=== PATIENT | male | born 1975 | race Caucasian/White ===

== ENCOUNTER 2017-02-17 15:25 | Observation (INO) | payer OTHER ==
[~2017-02-17] VITALS: Ht 177.8 cm; Wt 90.0 kg
--- NOTE | ~2017-02-17 | OR ---
Unit #: [id number] #: [id number] Patient: MORTEZA GILL [id number] [facility]. [place], [place] [address] [id number] MR#: [id number] NAME: MORTEZA GILL ROOM: 479 Date of Procedure: 02/17/2017 Admission Date: 02/17/2017 Surgeon: Paul Mcdowell M.D. : 1975 Attending Physician: Paul Mcdowell M.D. Referring Physician: Paul Mcdowell M.D. OPERATIVE REPORT PREOPERATIVE DIAGNOSIS Left ureteral calculus. POSTOPERATIVE DIAGNOSIS Left ureteral calculus. PROCEDURE PERFORMED Cystoscopy with left rigid ureteroscopy, holmium laser lithotripsy, basket extraction of fragments, placement of double-J ureteral stent with external tether. ANESTHESIA General. 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 DESCRIPTION OF PROCEDURE The patient was given preoperative antibiotics and satisfactory general anesthesia. In the dorsal lithotomy position, routine prep and drape were performed. The 21-[place] Islander rigid cystoscope was introduced with a 30-degree lens and video noting a normal anterior and prostatic urethra, although mild elevation of bladder neck. The bladder was drained of clear yellow urine and the orifices noted to be normal and the mucosa healthy pink throughout with no stones, tumors, or suspicious areas seen. The left ureteral stone was seen fluoroscopically just above the pelvic brim. A Sensor guidewire passed up to it, but not beyond it. A Pollack catheter was placed and through it the Sensor guidewire passed easily beyond the stone which was then gently manipulated out of position with the Pollack catheter as well. Leuprolide 8, 10, and 12 were used to dilate the ureter without difficulty. The guidewire was quite straight and a rigid ureteroscope passed easily alongside of it up to above the pelvic brim, where the stone was seen higher than desired. It was carefully brought down with a Nitinol basket and repositioned or it could be lasered without fear of back migration again. With the bed in mild reverse Trendelenburg, the 365 nanometer laser fiber was used at settings of 12 and 0.4 to chip off small pieces methodically until there was only one significant fragment remaining. This was grasped with the basket which occluded the ureter enough to allow irrigation of all the other fragments out ahead of it. This large fragment was collected and sent for Unit #: [id number] #: [id number] Patient: MORTEZA GILL chemical analysis. Final inspection in the ureter one more time showed it to free of trauma or residual stones. There was bleeding around the left ureteral orifice that was associated with dilation. Stent placement appeared indicated in the distal ureter. A 28 x 5 double-J stent was well positioned cystoscopically and fluoroscopically. The bladder was drained. The cystoscope removed. The stent string secured to the dorsum of the penis and a Uro-jet applied. The patient will be given a one week followup and is to have Keflex, tamsulosin, and Percocet until then. Dictated by... Erica Cartwright/joão TD: 02/18/2017 02:40 JOB #: [id number] OPERATIVE REPORT Page 1 of 1 X Paul Mcdowell MD X PROCEDURE OPERATIVE NOTE
--- NOTE | ~2017-02-17 | HP ---
Unit #: [id number] #: [id number] Patient: MORTEZA GILL [id number] [facility] [address] [facility]. [place], [place] [address] [id number] MR#: [id number] NAME: MORTEZA GILL ROOM: 479 Age: 41 Sex: M Admission Date: 02/17/2017 : 1975 Attending Physician: Paul Mcdowell M.D. Referring Physician: Paul Mcdowell M.D. HISTORY AND PHYSICAL CHIEF COMPLAINT Flank pain. HISTORY OF PRESENT ILLNESS This 41-year-old man presented to the [facility] Emergency Department this morning and was complaining of left flank pain with nausea, although no vomiting. This had occurred briefly two years previously. He had a history of ureteroscopy for a stone in 2005. He was sent from [place] to [facility] Emergency Department where he was diagnosed with a 12 mm stone in the mid left ureter with hydronephrosis. On this basis, I accepted him for transfer to [facility] for ureteroscopic treatment today, and I am meeting him in the holding area. He is awake, alert, and pain persisting but fairly controlled. He gave me the above history. He does not have voiding complaints, trouble with urinary infections, or gross hematuria. PAST MEDICAL HISTORY 1. Kidney stones. 2. Cholecystectomy. 3. Vasectomy at the time of his laser lithotripsy. 4. [place] teeth removed. ADMISSION MEDICATIONS Zoloft. ALLERGIES None known. FAMILY HISTORY Noncontributory. 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 REVIEW OF SYSTEMS Negative other than the above. PHYSICAL EXAMINATION VITAL SIGNS: Patient is 5 feet 10 inches. GENERAL: Healthy appearance. HEENT: Unremarkable. LUNGS: Clear. Unit #: [id number] #: [id number] Patient: MORTEZA GILL CARDIAC: Rate and rhythm regular. ABDOMEN: Tender in the left upper quadrant and flank. Phallus normal circumcised. Testes normal descended. EXTREMITIES: No edema. NEUROLOGIC: Intact. DIAGNOSTIC STUDIES IMAGING: CT reviewed and is as stated, although the stone is 12 mm long, more likely 6 x 6 mm axially. IMPRESSION Large mid ureteral calculus. Patient is familiar with risks of ureteroscopy including pain, bleeding, infection, and ureteral stenting as he has had before and agrees to proceed. PLAN Will proceed with left ureteroscopy, laser lithotripsy, and stent placement. He may require overnight admission as he drove himself to the hospital. Dictated by Erica Cartwright/allison TD: 02/17/2017 20:43 JOB #: [id number] HISTORY AND PHYSICAL Page 1 of 1 X Paul Mcdowell MD X HISTORY AND PHYSICAL
[2017-02-17] MEDS ORDERED: ZOLOFT50 MG PO (15:53)
[2017-02-18] MEDS ORDERED: KEFLEX500 MG PO (08:28)
[2017-02-18] MEDS ORDERED: PERCOCET5/325 PO (08:29)
[2017-02-18] MEDS ORDERED: TAMSULOSIN HCL0.4 MG PO (08:29)
== END 2017-02-18 14:45 | disposition home or self-care (01) | DRG 694 ==
LOC: CSUR 15:25 → CPACUOF 18:55 → C4C 19:12 → CSUR 19:12 → CPACUOF 19:12 → C4C 19:12 → CPACUOF 20:16 → C4C 02-18 14:45
PROVIDERS: Urology
DX: N13.2 Hydronephrosis with renal and ureteral calculous obstruction (principal); Z87.442 Personal history of urinary calculi
CPT/HCPCS: 82365; 88300; 96374; 96376; C1758; C2617; G0378; J0690; J1100; J1885; J2250; J2405; J3010